=== PATIENT | male | born 1950 | race Caucasian/White ===

== ENCOUNTER 2024-02-04 15:08 | Emergency (ER) | payer MEDICARE, OTHER, SELFPAY ==
[2024-02-04] VITALS (58 sets, daily range): BP systolic 66–161; BP diastolic 43–117; PULSE 92–165; TEMP 36.4; O2SAT 81–100; BMI 23.6
--- NOTE | 2024-02-04 15:14 | ECG_ITS ---
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
[2024-02-04 15:24] LABS: Glucometer 426 mg/dL (74-106)
[2024-02-04] MEDS: METOPROLOL TARTRATE 5 MG/5 ML VIAL IVP ×4 (15:24→23:06)
[2024-02-04] MEDS: 0.9 % SODIUM CHLORIDE 1,000 ML 1000 ML IV ×2 (15:24→17:19)
[2024-02-04 15:58] LABS: Bilirubin Urine NEGATIVE (NEGATIVE); Blood Urine TRACE-I (NEGATIVE); Clarity Urine CLEAR (CLEAR); Color Urine LT. YELLOW (YELLOW); Glucose Urine UA >=1000 mg/dL (NEGATIVE); Ketones Urine NEGATIVE (NEGATIVE); Leukocyte Esterase Urine NEGATIVE (NEGATIVE); Nitrite Urine NEGATIVE (NEGATIVE); Protein Urine NEGATIVE (NEG/TRACE)
[2024-02-04 15:58] LABS: Basophils Percent Auto 0.3 % (0.2-2.0); Eosinophils Percent Auto 0.2 % (0.9-7.0); Hematocrit 26.5 % (42.0-54.0); Hemoglobin 8.3 g/dL (14.0-18.0); Immature Granulocytes Abs Auto 0.03 10^3/uL (0.00-0.03); Immature Granulocytes Pct Auto 0.3 % (0.0-0.5); Lymphocytes Absolute Auto 0.8 10^3/uL (1.2-3.8); Lymphocytes Percent Auto 8.5 % (20.5-60.0); Mean Corpuscular HGB Conc 31.3 g/dL (29.9-35.2); Mean Corpuscular Hemoglobin 27.9 pg (25.9-34.0); Mean Corpuscular Volume 88.9 fL (80.0-94.0); Mean Platelet Volume 12.5 fL (9.5-13.5); Monocytes Absolute Auto 0.6 10^3/uL (0.3-0.8); Monocytes Percent Auto 6.2 % (1.7-12.0); Neutrophils Absolute Auto 8.2 10^3/uL (1.4-6.5); Neutrophils Percent Auto 84.5 % (43.0-75.0); Platelet Count 176 10^3/uL (150-450); Red Blood Count 2.98 10^6/uL (4.70-6.10); White Blood Count 9.7 10^3/uL (4.0-11.0)
[2024-02-04 16:03] LABS: Ethanol <3 mg/dL; Magnesium 1.9 mg/dL (1.8-2.4)
[2024-02-04 16:05] LABS: Urine Microscopic Indicated YES
[2024-02-04 16:13] LABS: Amphetamine Screen Urine NEGATIVE (NEGATIVE); Barbiturates Screen Urine NEGATIVE (NEGATIVE); Benzodiazepines Screen Urine NEGATIVE (NEGATIVE); Buprenorphine Screen Urine NEGATIVE (NEGATIVE); Cannabinoid Screen Urine NEGATIVE (NEGATIVE); Cocaine Screen Urine NEGATIVE (NEGATIVE); Methadone Screen Urine NEGATIVE (NEGATIVE); Methamphetamines Screen Urine NEGATIVE (NEGATIVE); Opiate Screen Urine NEGATIVE (NEGATIVE); Oxycodone Screen Urine NEGATIVE (NEGATIVE); Phencyclidine Screen Urine NEGATIVE (NEGATIVE); Tricyclic Antidepressant Urine NEGATIVE (NEGATIVE)
[2024-02-04 16:13] LABS: Alanine Aminotransferase 40 U/L (16-63); Albumin Globulin Ratio 0.9; Albumin Level 3.6 g/dL (3.4-5.0); Alkaline Phosphatase 218 U/L (46-116); Anion Gap 22.1; Aspartate Amino Transferase 38 U/L (15-37); BUN Creatinine Ratio 35.7; Bilirubin Total 1.3 mg/dL (0.2-1.0); Calcium 10.2 mg/dL (8.5-10.1); Carbon Dioxide 20.5 mmol/L (21.0-32.0); Chloride 104 mmol/L (98-107); Creatine Kinase 118 U/L (39-308); Estimated GFR (African America 32 (>=60); Estimated GFR (Non-African Ame 26 (>=60); Glucose 436 mg/dL (74-106); Potassium 4.6 mmol/L (3.5-5.1); Sodium 142 mmol/L (136-145); Total Protein 7.6 g/dL (6.4-8.2)
--- NOTE | 2024-02-04 16:13 | XR_ITS ---
The [address] [address] Patient Name: ALLISON CONROY MRN: [id number] date: 1950 Sex: M Assigned Patient Location: ER Current Patient Location: ED.MAIN Accession/Order Number: [id number] Exam Date: 02/04/2024 15:55 Report Date: 02/04/2024 16:50 At the request of: SANAZ RODRIGUEZ Procedure: XR chest 1V EXAM: XR chest 1V HISTORY: ams COMPARISON: None. TECHNIQUE: Chest X-ray AP, 1 view FINDINGS: Support devices: None. Lungs/pleura: No consolidation, effusion, or pneumothorax. Heart and mediastinum: Normal contours. Bones: No acute abnormality identified. XR/XR chest 1V Impression: No radiographic evidence of acute cardiopulmonary process. Electronically authenticated by: ISABEL OZUNA Date: 02/04/2024 16:50
--- NOTE | 2024-02-04 16:13 | CT_ITS ---
[address] [address] Patient Name: ALLISON CONROY MRN: [id number] date: 1950 Sex: M Assigned Patient Location: ER Current Patient Location: [facility] Accession/Order Number: [id number] Exam Date: 02/04/2024 15:55 Report Date: 02/04/2024 16:30 At the request of: SANAZ RODRIGUEZ Procedure: CT cervical spine wo con EXAM: CT head/brain wo con, CT cervical spine wo con CLINICAL INDICATION: ams COMPARISON: None TECHNIQUE: Axial CT images of the brain and cervical spine were obtained without contrast. Coronal and sagittal reformats were obtained. Dose reduction techniques were achieved by using automated exposure control and/or adjustment of mA and/or kV according to patient size and/or use of iterative reconstruction technique. FINDINGS: No intracranial hemorrhage, extra-axial fluid collection, hydrocephalus, midline shift, or acute large vessel territory infarction. No other mass effect. Mild symmetric global volume loss without lobar predominance. Slight commensurate prominence of the ventricular system. Basal cisterns are patent. No calvarial fracture. Normal soft tissues. Nonspecific bilateral proptosis. Mild scattered paranasal sinus mucosal thickening. Mastoid air cells are well-aerated. Osseous Mineralization: Diffuse osseous demineralization limits evaluation of fine osseous detail. Trauma: No definite fracture, traumatic malalignment, facet dislocation, or discrete epidural hemorrhage. Alignment: Normal craniocervical and cervicothoracic junctions. Vertebral Body Heights: Maintained. Spondylotic Changes: Multilevel spondylotic changes include varying degrees of intervertebral disc height loss, osteophytic ridging, endplate sclerosis, and facet/uncovertebral joint hypertrophy. Partially calcified degenerative panus formation along the dorsal tip of the dens. Soft Tissues: No acute abnormalities. Scattered basilar calcifications. Other: Clear visualized lung apices. Airway is patent. CT/CT cervical spine wo con IMPRESSION: 1. No acute intracranial process. 2. Given the constraint of osseous debris embolization, there is no definite ventricles without fracture or traumatic malalignment. 3. Multilevel spondylotic changes. Electronically authenticated by: SAVANNA LEWIS Date: 02/04/2024 16:30
--- NOTE | 2024-02-04 16:13 | CT_ITS ---
[address] [address] Patient Name: ALLISON CONROY MRN: [id number] date: 1950 Sex: M Assigned Patient Location: ER Current Patient Location: [facility] Accession/Order Number: [id number] Exam Date: 02/04/2024 15:55 Report Date: 02/04/2024 16:30 At the request of: SANAZ RODRIGUEZ Procedure: CT head/brain wo con EXAM: CT head/brain wo con, CT cervical spine wo con CLINICAL INDICATION: ams COMPARISON: None TECHNIQUE: Axial CT images of the brain and cervical spine were obtained without contrast. Coronal and sagittal reformats were obtained. Dose reduction techniques were achieved by using automated exposure control and/or adjustment of mA and/or kV according to patient size and/or use of iterative reconstruction technique. FINDINGS: No intracranial hemorrhage, extra-axial fluid collection, hydrocephalus, midline shift, or acute large vessel territory infarction. No other mass effect. Mild symmetric global volume loss without lobar predominance. Slight commensurate prominence of the ventricular system. Basal cisterns are patent. No calvarial fracture. Normal soft tissues. Nonspecific bilateral proptosis. Mild scattered paranasal sinus mucosal thickening. Mastoid air cells are well-aerated. Osseous Mineralization: Diffuse osseous demineralization limits evaluation of fine osseous detail. Trauma: No definite fracture, traumatic malalignment, facet dislocation, or discrete epidural hemorrhage. Alignment: Normal craniocervical and cervicothoracic junctions. Vertebral Body Heights: Maintained. Spondylotic Changes: Multilevel spondylotic changes include varying degrees of intervertebral disc height loss, osteophytic ridging, endplate sclerosis, and facet/uncovertebral joint hypertrophy. Partially calcified degenerative panus formation along the dorsal tip of the dens. Soft Tissues: No acute abnormalities. Scattered basilar calcifications. Other: Clear visualized lung apices. Airway is patent. CT/CT head/brain wo con IMPRESSION: 1. No acute intracranial process. 2. Given the constraint of osseous debris embolization, there is no definite ventricles without fracture or traumatic malalignment. 3. Multilevel spondylotic changes. Electronically authenticated by: SAVANNA LEWIS Date: 02/04/2024 16:30
[2024-02-04 16:17] LABS: Ammonia 98 umol/L (11-32)
[2024-02-04 16:17] LABS: Bacteria Urine NONE SEEN #/HPF (NONE SEEN); Cast Seen? NONE SEEN #/LPF (NONE SEEN); Crystals Seen? None Seen #/HPF (None Seen); Mucus Urine NONE SEEN (NONE SEEN); Squamous Epithelial Cell Urine NONE SEEN #/LPF (NONE/RARE); WBC Urine NONE SEEN #/HPF (NONE SEEN)
[2024-02-04 16:17] LABS: Troponin I High Sensitivity 361.1 pg/mL (4.0-76.1)
[2024-02-04 16:24] LABS: Lactate/Lactic Acid 6.3 mmol/L (0.4-2.0)
[2024-02-04 16:53] LABS: ABG PCO2 29.8 mmHg (35.0-45.0); Allen Test POSITIVE (POSITIVE); HCO3 ABG 20.9 mmol/L (22.0-26.0); Oxygen Saturation ABG 94.5 %; PO2 ABG 79.4 mmHg (80.0-100.0); pH ABG 7.455 (7.350-7.450)
[2024-02-04 16:54] LABS: O2 Mode ROOM AIR; Puncture Site L RAD
[2024-02-04] MEDS: PIPERACILLIN SODIUM/TAZOBACTAM 4.5 GM in 0.9 % SODIUM CHLORIDE 50 ML IV (17:19)
[2024-02-04 17:38] LABS: Lactate/Lactic Acid 3.5 mmol/L (0.4-2.0); Troponin I High Sensitivity 2617.9 pg/mL (4.0-76.1)
--- NOTE | 2024-02-04 17:42 | ED_ITS ---
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 The patient presenting to us he is just moaning he is not providing history or following any commands Related Data Allergies Allergy/AdvReac Type Severity Reaction Status Date / Time balsam ana maria [From Optase] Allergy Severe Verified 02/04/24 15:23 castor oil [From Optase] Allergy Severe Verified 02/04/24 15:23 fish oil Allergy Severe Verified 02/04/24 15:23 mushroom Allergy Severe Verified 02/04/24 15:23 trypsin [From Optase] Allergy Severe Verified 02/04/24 15:23 Review of Systems ROS Narrative Review of systems is limited due to the patient's clinical presentation Exam Narrative Exam Narrative: Nurses notes and vital signs reviewed and patient is not hypoxic. General: No acute and dehydrated the patient is covered with physical Skin: Warm, dry, no pallor noted. No rash. Head: Normocephalic, atraumatic. Neck: Supple, non-tender. Eye: Pupils are equal, round and EOMI. No scleral icterus. Ears, Nose, Mouth, and Throat: Oral mucosa is dry Cardiovascular: Irregular rate and Rhythm without murmur, gallop or rub. Respiratory: No accessory muscle use or respiratory distress. Lungs are clear to auscultation, no wheezing, rales or rhonchi Chest Wall: no tenderness Back: No midline thoracic or lumbar vertebral tenderness. No CVA tenderness Musculoskeletal: normal ROM, no calf or popliteal tenderness, no lower extremity edema/swelling GI: Abdomen is soft, non-distended. Normal bowel sounds. No masses appreciated. No tenderness to palpation. No rebound, guarding, or rigidity noted. rectal exam shows black stool and large hemorrhoid at 6 oclock Neurological: The patient is awake able to move his upper and lower extremities sporadically but there is no motivation the cranial nerves looks intact but the patient is not following command and not cooperative Constitutional Vital Signs, click to edit/add: Last Vital Signs Pulse 109 H 02/04/24 17:45 Resp 14 02/04/24 17:45 BP 114/73 02/04/24 18:01 Pulse Ox 96 02/04/24 17:45 O2 Del Method Room Air 02/04/24 15:28 Course Vital Signs Vital signs: Vital Signs Pulse Rate 157 H 02/04/24 15:12 Respiratory Rate 20 02/04/24 15:12 Blood Pressure 161/117 H 02/04/24 15:12 Pulse Oximetry 96 02/04/24 15:12 Oxygen Delivery Method Room Air 02/04/24 15:12 Pulse Rate 109 H 02/04/24 17:45 Respiratory Rate 14 02/04/24 17:45 Blood Pressure 114/73 02/04/24 18:01 Pulse Oximetry 96 02/04/24 17:45 Oxygen Delivery Method Room Air 02/04/24 15:28 MDM - Altered Mental Status MDM Narrative Medical decision making narrative: Upon presentation the patient was found to be in A-fib with a heart rate of 156, Initially the patient was moaning after placing the catheter he became silent and the catheter drained almost a liter at least of urine. The patient CBC showed no acute significant pathology with the chemistry showing elevated creatinine as well as BUN elevation that could be significant for possible upper GI bleed as well at that the BUN is 87 Creatinine is 2.4. The patient troponin initially was 361-----patient provided with beta-vonda IV 5 mg once The patient also was covered with antibiotic after obtaining a blood culture, no source of infection detected Lactic acid 6.5 after 1 L fluid the patient lactic acid 3.5 Patient still calm looking but not providing history. CT head as well as CT cervical spine showed no acute pathology Chest x-ray showed no acute pathology as well Patient history was obtained from the friend who provide us with a history that he had been discharged just from [facility] [place] almost on Saturday after he was getting evaluated for A-fib as well as GI bleed and diabetes Upon presentation the patient blood sugar above 400 Repeated EKG showing atrial fibrillation at a heart rate of [address] depression in V5 and V6 and no other significant changes The patient have multiple reasons to have altered mental status due to metabolic reasons specially that he is moving his upper and lower extremities sporadically and does not show any cranial nerve pathology, the patient last known well was yesterday when his friend was talking to him on the phone and that this past almost 23 hours since then The patient ammonia level also was 98 and his BUN is 87 The patient did say yes when calling his nname after he was hydrated But he did not answer the phone question and he also one called his name he said yes but he did not provide any more history Patient was accepted by Dr. Wright After Is causing the case with him and with now awaiting to speak with the hospitalist in [place] Patient's care will be transferred to Dr. Jane awaiting transfer care Lab Data Labs: Lab Results 02/04/24 02/04/24 02/04/24 Range/Units 15:10 15:13 15:40 WBC 9.7 (4.0-11.0) 10^3/uL RBC 2.98 L (4.70-6.10) 10^6/uL Hgb 8.3 L (14.0-18.0) g/dL Hct 26.5 L (42.0-54.0) % MCV 88.9 (80.0-94.0) fL MCH 27.9 (25.9-34.0) pg MCHC 31.3 (29.9-35.2) g/dL RDW 16.0 H (11.0-15.0) % Plt Count 176 (150-450) 10^3/uL MPV 12.5 (9.5-13.5) fL Neut % (Auto) 84.5 H (43.0-75.0) % Lymph % (Auto) 8.5 L (20.5-60.0) % [place] % (Auto) 6.2 (1.7-12.0) % Eos % (Auto) 0.2 L (0.9-7.0) % Baso % (Auto) 0.3 (0.2-2.0) % Neut # (Auto) 8.2 H (1.4-6.5) 10^3/uL Lymph # (Auto) 0.8 L (1.2-3.8) 10^3/uL [place] # (Auto) 0.6 (0.3-0.8) 10^3/uL Eos # (Auto) 0.0 (0.0-0.7) 10^3/uL Baso # (Auto) 0.0 (0.0-0.1) 10^3/uL Abs Immat Gran (auto) 0.03 (0.00-0.03) 10^3/uL Imm/Tot Granulo (auto) 0.3 (0.0-0.5) % Puncture Site ABG pH (7.350-7.450) ABG pCO2 (35.0-45.0) mmHg ABG pO2 (80.0-100.0) mmHg ABG HCO3 (22.0-26.0) mmol/L ABG O2 Saturation % ABG Base Excess (-2.0-2.0) mmol/L Stephon Test (POSITIVE) Sodium 142 (136-145) mmol/L Potassium 4.6 (3.5-5.1) mmol/L Chloride 104 (98-107) mmol/L Carbon Dioxide 20.5 L (21.0-32.0) mmol/L Anion Gap 22.1 BUN 87.0 H* (7.0-18.0) mg/dL Creatinine 2.44 H (0.70-1.30) mg/dL Est GFR ( Amer) 32 L (>=60) Est GFR (Non-Af Amer) 26 L (>=60) BUN/Creatinine Ratio 35.7 Glucose 436 H (74-106) mg/dL Lactate 6.3 H* (0.4-2.0) mmol/L Calcium 10.2 H (8.5-10.1) mg/dL Magnesium 1.9 (1.8-2.4) mg/dL Total Bilirubin 1.3 H (0.2-1.0) mg/dL AST 38 H (15-37) U/L ALT 40 (16-63) U/L Alkaline Phosphatase 218 H (46-116) U/L Ammonia (11-32) umol/L Total Creatine Kinase 118 (39-308) U/L Troponin I High Sens 361.1 H* (4.0-76.1) pg/mL Total Protein 7.6 (6.4-8.2) g/dL Albumin 3.6 (3.4-5.0) g/dL Globulin 4.0 g/dL Albumin/Globulin Ratio 0.9 Urine Color Lt. yellow (YELLOW) Urine Clarity Clear (CLEAR) Urine pH 6.0 (5.0-9.0) Ur Specific [place] 1.010 (1.005-1.025) Urine Protein Negative (NEG/TRACE) mg/dL Urine Glucose (UA) >=1000 A (NEGATIVE) mg/dL Urine Ketones Negative (NEGATIVE) mg/dL Urine Occult Blood Trace-i (NEGATIVE) Urine Nitrite Negative (NEGATIVE) Urine Bilirubin Negative (NEGATIVE) Urine Urobilinogen 1.0 (0.2-1.0) EU/dL Ur Leukocyte Esterase Negative (NEGATIVE) Urine RBC 2-5 A (0-2) #/HPF Urine WBC None seen (NONE SEEN) #/HPF Ur Squamous Epith Cells None seen (NONE/RARE) #/LPF Urine Crystals None seen (None Seen) #/HPF Urine Bacteria None seen (NONE SEEN) #/HPF Urine Casts None seen (NONE SEEN) #/LPF Urine Mucus None seen (NONE SEEN) Stool Occult Blood Urine Opiates Screen Negative (NEGATIVE) Ur Buprenorphine Scrn Negative (NEGATIVE) Ur Oxycodone Screen Negative (NEGATIVE) Urine Methadone Screen Negative (NEGATIVE) Ur Barbiturates Screen Negative (NEGATIVE) U Tricyclic Antidepress Negative (NEGATIVE) Ur Phencyclidine Scrn Negative (NEGATIVE) Ur Amphetamines Screen Negative (NEGATIVE) U Methamphetamines Scrn Negative (NEGATIVE) U Benzodiazepines Scrn Negative (NEGATIVE) Urine Cocaine Screen Negative (NEGATIVE) U Cannabinoids Screen Negative (NEGATIVE) Ethanol Quant <3 mg/dL POC Glucose 426 H (74-106) mg/dL 02/04/24 02/04/24 02/04/24 Range/Units 15:44 16:45 17:05 WBC (4.0-11.0) 10^3/uL RBC (4.70-6.10) 10^6/uL Hgb (14.0-18.0) g/dL Hct (42.0-54.0) % MCV (80.0-94.0) fL MCH (25.9-34.0) pg MCHC (29.9-35.2) g/dL RDW (11.0-15.0) % Plt Count (150-450) 10^3/uL MPV (9.5-13.5) fL Neut % (Auto) (43.0-75.0) % Lymph % (Auto) (20.5-60.0) % [place] % (Auto) (1.7-12.0) % Eos % (Auto) (0.9-7.0) % Baso % (Auto) (0.2-2.0) % Neut # (Auto) (1.4-6.5) 10^3/uL Lymph # (Auto) (1.2-3.8) 10^3/uL [place] # (Auto) (0.3-0.8) 10^3/uL Eos # (Auto) (0.0-0.7) 10^3/uL Baso # (Auto) (0.0-0.1) 10^3/uL Abs Immat Gran (auto) (0.00-0.03) 10^3/uL Imm/Tot Granulo (auto) (0.0-0.5) % Puncture Site L rad ABG pH 7.455 H (7.350-7.450) ABG pCO2 29.8 L (35.0-45.0) mmHg ABG pO2 79.4 L (80.0-100.0) mmHg ABG HCO3 20.9 L (22.0-26.0) mmol/L ABG O2 Saturation 94.5 % ABG Base Excess -3.0 L (-2.0-2.0) mmol/L Stephon Test Positive (POSITIVE) Sodium (136-145) mmol/L Potassium (3.5-5.1) mmol/L Chloride (98-107) mmol/L Carbon Dioxide (21.0-32.0) mmol/L Anion Gap BUN (7.0-18.0) mg/dL Creatinine (0.70-1.30) mg/dL Est GFR ( Amer) (>=60) Est GFR (Non-Af Amer) (>=60) BUN/Creatinine Ratio Glucose (74-106) mg/dL Lactate 3.5 H* (0.4-2.0) mmol/L Calcium (8.5-10.1) mg/dL Magnesium (1.8-2.4) mg/dL Total Bilirubin (0.2-1.0) mg/dL AST (15-37) U/L ALT (16-63) U/L Alkaline Phosphatase (46-116) U/L Ammonia 98 H* (11-32) umol/L Total Creatine Kinase (39-308) U/L Troponin I High Sens 2617.9 H* (4.0-76.1) pg/mL Total Protein (6.4-8.2) g/dL Albumin (3.4-5.0) g/dL Globulin g/dL Albumin/Globulin Ratio Urine Color (YELLOW) Urine Clarity (CLEAR) Urine pH (5.0-9.0) Ur Specific [place] (1.005-1.025) Urine Protein (NEG/TRACE) mg/dL Urine Glucose (UA) (NEGATIVE) mg/dL Urine Ketones (NEGATIVE) mg/dL Urine Occult Blood (NEGATIVE) Urine Nitrite (NEGATIVE) Urine Bilirubin (NEGATIVE) Urine Urobilinogen (0.2-1.0) EU/dL Ur Leukocyte Esterase (NEGATIVE) Urine RBC (0-2) #/HPF Urine WBC (NONE SEEN) #/HPF Ur Squamous Epith Cells (NONE/RARE) #/LPF Urine Crystals (None Seen) #/HPF Urine Bacteria (NONE SEEN) #/HPF Urine Casts (NONE SEEN) #/LPF Urine Mucus (NONE SEEN) Stool Occult Blood Urine Opiates Screen (NEGATIVE) Ur Buprenorphine Scrn (NEGATIVE) Ur Oxycodone Screen (NEGATIVE) Urine Methadone Screen (NEGATIVE) Ur Barbiturates Screen (NEGATIVE) U Tricyclic Antidepress (NEGATIVE) Ur Phencyclidine Scrn (NEGATIVE) Ur Amphetamines Screen (NEGATIVE) U Methamphetamines Scrn (NEGATIVE) U Benzodiazepines Scrn (NEGATIVE) Urine Cocaine Screen (NEGATIVE) U Cannabinoids Screen (NEGATIVE) Ethanol Quant mg/dL POC Glucose (74-106) mg/dL 02/04/24 Range/Units 18:00 WBC (4.0-11.0) 10^3/uL RBC (4.70-6.10) 10^6/uL Hgb (14.0-18.0) g/dL Hct (42.0-54.0) % MCV (80.0-94.0) fL MCH (25.9-34.0) pg MCHC (29.9-35.2) g/dL RDW (11.0-15.0) % Plt Count (150-450) 10^3/uL MPV (9.5-13.5) fL Neut % (Auto) (43.0-75.0) % Lymph % (Auto) (20.5-60.0) % [place] % (Auto) (1.7-12.0) % Eos % (Auto) (0.9-7.0) % Baso % (Auto) (0.2-2.0) % Neut # (Auto) (1.4-6.5) 10^3/uL Lymph # (Auto) (1.2-3.8) 10^3/uL [place] # (Auto) (0.3-0.8) 10^3/uL Eos # (Auto) (0.0-0.7) 10^3/uL Baso # (Auto) (0.0-0.1) 10^3/uL Abs Immat Gran (auto) (0.00-0.03) 10^3/uL Imm/Tot Granulo (auto) (0.0-0.5) % Puncture Site ABG pH (7.350-7.450) ABG pCO2 (35.0-45.0) mmHg ABG pO2 (80.0-100.0) mmHg ABG HCO3 (22.0-26.0) mmol/L ABG O2 Saturation % ABG Base Excess (-2.0-2.0) mmol/L Stephon Test (POSITIVE) Sodium (136-145) mmol/L Potassium (3.5-5.1) mmol/L Chloride (98-107) mmol/L Carbon Dioxide (21.0-32.0) mmol/L Anion Gap BUN (7.0-18.0) mg/dL Creatinine (0.70-1.30) mg/dL Est GFR ( Amer) (>=60) Est GFR (Non-Af Amer) (>=60) BUN/Creatinine Ratio Glucose (74-106) mg/dL Lactate (0.4-2.0) mmol/L Calcium (8.5-10.1) mg/dL Magnesium (1.8-2.4) mg/dL Total Bilirubin (0.2-1.0) mg/dL AST (15-37) U/L ALT (16-63) U/L Alkaline Phosphatase (46-116) U/L Ammonia (11-32) umol/L Total Creatine Kinase (39-308) U/L Troponin I High Sens (4.0-76.1) pg/mL Total Protein (6.4-8.2) g/dL Albumin (3.4-5.0) g/dL Globulin g/dL Albumin/Globulin Ratio Urine Color (YELLOW) Urine Clarity (CLEAR) Urine pH (5.0-9.0) Ur Specific [place] (1.005-1.025) Urine Protein (NEG/TRACE) mg/dL Urine Glucose (UA) (NEGATIVE) mg/dL Urine Ketones (NEGATIVE) mg/dL Urine Occult Blood (NEGATIVE) Urine Nitrite (NEGATIVE) Urine Bilirubin (NEGATIVE) Urine Urobilinogen (0.2-1.0) EU/dL Ur Leukocyte Esterase (NEGATIVE) Urine RBC (0-2) #/HPF Urine WBC (NONE SEEN) #/HPF Ur Squamous Epith Cells (NONE/RARE) #/LPF Urine Crystals (None Seen) #/HPF Urine Bacteria (NONE SEEN) #/HPF Urine Casts (NONE SEEN) #/LPF Urine Mucus (NONE SEEN) Stool Occult Blood Positive A Urine Opiates Screen (NEGATIVE) Ur Buprenorphine Scrn (NEGATIVE) Ur Oxycodone Screen (NEGATIVE) Urine Methadone Screen (NEGATIVE) Ur Barbiturates Screen (NEGATIVE) U Tricyclic Antidepress (NEGATIVE) Ur Phencyclidine Scrn (NEGATIVE) Ur Amphetamines Screen (NEGATIVE) U Methamphetamines Scrn (NEGATIVE) U Benzodiazepines Scrn (NEGATIVE) Urine Cocaine Screen (NEGATIVE) U Cannabinoids Screen (NEGATIVE) Ethanol Quant mg/dL POC Glucose (74-106) mg/dL Critical Care Time Critical Care Time Critical Care Time: Yes Total Critical Care Time: 60 Attestation: multiple bedside evaluation for improvement Discharge Plan Discharge Patient Disposition: Still a Patient
--- NOTE | 2024-02-04 17:47 | ECG_ITS ---
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
[2024-02-04 18:31] LABS: Occult Blood Positive
--- NOTE | 2024-02-04 20:02 | ED_ITS ---
HPI - Altered Mental Status General Chief Complaint: Altered Mental Status Stated Complaint: FALL Time Seen by Provider: 02/04/24 15:14 Source: medical record Source comment: Dayshift physician, Dr Plascencia Mode of arrival: ambulance Limitations: altered mental status History of Present Illness HPI narrative: This 73-year-old male was signed out to me at shift change pending transfer arrangements. He was brought to the emergency department by EMS from home after he was found poorly responsive at his home earlier today by a colleague. 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 He was also recently admitted to [facility] for atrial fibrillation, uncontrolled diabetes and a gastrointestinal bleed. He was found to be in atrial fibrillation with RVR and was given IV metoprolol and IV fluids. His initial troponin was 300 and also troponin was over 2000. CT of the brain was negative for acute findings. He does have an elevated BUN today of 86. Ammonia is elevated at 98. Patient was seen and evaluated. He is awake but does not follow commands. He does answer questions with a yes and then now. His abdomen is soft. His lungs are clear. He was noted to have a fluctuating pulse with atrial fibrillation on the monitor. IV fluids and an additional 5 mg of IV Lopressor was ordered at this time. Dr. Plascencia spoke to the associate justice and we are waiting to hear from the hospitalist for further acceptance and transfer arrangements at this time. Case was discussed with ELVA Clarke and he is accepted to the service of Dr Singh. She requests that he be given lactulose for the elevated ammonia and this was ordered. He was given the lactulose but spit it out. He was given 1 unit of IV PBRCs for the anemia with the elevated troponin and history of GI bleed. Critical care time 45 minutes Related Data Allergies Allergy/AdvReac Type Severity Reaction Status Date / Time balsam ana maria [From Optase] Allergy Severe Verified 02/04/24 15:23 castor oil [From Optase] Allergy Severe Verified 02/04/24 15:23 fish oil Allergy Severe Verified 02/04/24 15:23 mushroom Allergy Severe Verified 02/04/24 15:23 trypsin [From Optase] Allergy Severe Verified 02/04/24 15:23 Exam Constitutional Vital Signs, click to edit/add: Last Vital Signs Temp 97.6 F 02/04/24 19:42 Pulse 96 H 02/05/24 00:15 Resp 19 02/05/24 00:15 BP 140/84 02/05/24 00:00 Pulse Ox 95 02/05/24 00:15 O2 Del Method Room Air 02/04/24 15:28 Course Vital Signs Vital signs: Vital Signs Pulse Rate 157 H 02/04/24 15:12 Respiratory Rate 20 02/04/24 15:12 Blood Pressure 161/117 H 02/04/24 15:12 Pulse Oximetry 96 02/04/24 15:12 Oxygen Delivery Method Room Air 02/04/24 15:12 Temperature 97.6 F 02/04/24 19:42 Pulse Rate 96 H 02/05/24 00:15 Respiratory Rate 19 02/05/24 00:15 Blood Pressure 140/84 02/05/24 00:00 Pulse Oximetry 95 02/05/24 00:15 Oxygen Delivery Method Room Air 02/04/24 15:28 MDM - Altered Mental Status Lab Data Labs: Lab Results 02/04/24 02/04/24 02/04/24 Range/Units 15:10 15:13 15:40 WBC 9.7 (4.0-11.0) 10^3/uL RBC 2.98 L (4.70-6.10) 10^6/uL Hgb 8.3 L (14.0-18.0) g/dL Hct 26.5 L (42.0-54.0) % MCV 88.9 (80.0-94.0) fL MCH 27.9 (25.9-34.0) pg MCHC 31.3 (29.9-35.2) g/dL RDW 16.0 H (11.0-15.0) % Plt Count 176 (150-450) 10^3/uL MPV 12.5 (9.5-13.5) fL Neut % (Auto) 84.5 H (43.0-75.0) % Lymph % (Auto) 8.5 L (20.5-60.0) % [place] % (Auto) 6.2 (1.7-12.0) % Eos % (Auto) 0.2 L (0.9-7.0) % Baso % (Auto) 0.3 (0.2-2.0) % Neut # (Auto) 8.2 H (1.4-6.5) 10^3/uL Lymph # (Auto) 0.8 L (1.2-3.8) 10^3/uL [place] # (Auto) 0.6 (0.3-0.8) 10^3/uL Eos # (Auto) 0.0 (0.0-0.7) 10^3/uL Baso # (Auto) 0.0 (0.0-0.1) 10^3/uL Abs Immat Gran (auto) 0.03 (0.00-0.03) 10^3/uL Imm/Tot Granulo (auto) 0.3 (0.0-0.5) % Puncture Site ABG pH (7.350-7.450) ABG pCO2 (35.0-45.0) mmHg ABG pO2 (80.0-100.0) mmHg ABG HCO3 (22.0-26.0) mmol/L ABG O2 Saturation % ABG Base Excess (-2.0-2.0) mmol/L Stephon Test (POSITIVE) Sodium 142 (136-145) mmol/L Potassium 4.6 (3.5-5.1) mmol/L Chloride 104 (98-107) mmol/L Carbon Dioxide 20.5 L (21.0-32.0) mmol/L Anion Gap 22.1 BUN 87.0 H* (7.0-18.0) mg/dL Creatinine 2.44 H (0.70-1.30) mg/dL Est GFR ( Amer) 32 L (>=60) Est GFR (Non-Af Amer) 26 L (>=60) BUN/Creatinine Ratio 35.7 Glucose 436 H (74-106) mg/dL Lactate 6.3 H* (0.4-2.0) mmol/L Calcium 10.2 H (8.5-10.1) mg/dL Magnesium 1.9 (1.8-2.4) mg/dL Total Bilirubin 1.3 H (0.2-1.0) mg/dL AST 38 H (15-37) U/L ALT 40 (16-63) U/L Alkaline Phosphatase 218 H (46-116) U/L Ammonia (11-32) umol/L Total Creatine Kinase 118 (39-308) U/L Troponin I High Sens 361.1 H* (4.0-76.1) pg/mL Total Protein 7.6 (6.4-8.2) g/dL Albumin 3.6 (3.4-5.0) g/dL Globulin 4.0 g/dL Albumin/Globulin Ratio 0.9 Urine Color Lt. yellow (YELLOW) Urine Clarity Clear (CLEAR) Urine pH 6.0 (5.0-9.0) Ur Specific [place] 1.010 (1.005-1.025) Urine Protein Negative (NEG/TRACE) mg/dL Urine Glucose (UA) >=1000 A (NEGATIVE) mg/dL Urine Ketones Negative (NEGATIVE) mg/dL Urine Occult Blood Trace-i (NEGATIVE) Urine Nitrite Negative (NEGATIVE) Urine Bilirubin Negative (NEGATIVE) Urine Urobilinogen 1.0 (0.2-1.0) EU/dL Ur Leukocyte Esterase Negative (NEGATIVE) Urine RBC 2-5 A (0-2) #/HPF Urine WBC None seen (NONE SEEN) #/HPF Ur Squamous Epith Cells None seen (NONE/RARE) #/LPF Urine Crystals None seen (None Seen) #/HPF Urine Bacteria None seen (NONE SEEN) #/HPF Urine Casts None seen (NONE SEEN) #/LPF Urine Mucus None seen (NONE SEEN) Stool Occult Blood Urine Opiates Screen Negative (NEGATIVE) Ur Buprenorphine Scrn Negative (NEGATIVE) Ur Oxycodone Screen Negative (NEGATIVE) Urine Methadone Screen Negative (NEGATIVE) Ur Barbiturates Screen Negative (NEGATIVE) U Tricyclic Antidepress Negative (NEGATIVE) Ur Phencyclidine Scrn Negative (NEGATIVE) Ur Amphetamines Screen Negative (NEGATIVE) U Methamphetamines Scrn Negative (NEGATIVE) U Benzodiazepines Scrn Negative (NEGATIVE) Urine Cocaine Screen Negative (NEGATIVE) U Cannabinoids Screen Negative (NEGATIVE) Ethanol Quant <3 mg/dL POC Glucose 426 H (74-106) mg/dL Blood Type Antibody Screen Crossmatch See Detail 02/04/24 02/04/24 02/04/24 Range/Units 15:44 16:45 17:05 WBC (4.0-11.0) 10^3/uL RBC (4.70-6.10) 10^6/uL Hgb (14.0-18.0) g/dL Hct (42.0-54.0) % MCV (80.0-94.0) fL MCH (25.9-34.0) pg MCHC (29.9-35.2) g/dL RDW (11.0-15.0) % Plt Count (150-450) 10^3/uL MPV (9.5-13.5) fL Neut % (Auto) (43.0-75.0) % Lymph % (Auto) (20.5-60.0) % [place] % (Auto) (1.7-12.0) % Eos % (Auto) (0.9-7.0) % Baso % (Auto) (0.2-2.0) % Neut # (Auto) (1.4-6.5) 10^3/uL Lymph # (Auto) (1.2-3.8) 10^3/uL [place] # (Auto) (0.3-0.8) 10^3/uL Eos # (Auto) (0.0-0.7) 10^3/uL Baso # (Auto) (0.0-0.1) 10^3/uL Abs Immat Gran (auto) (0.00-0.03) 10^3/uL Imm/Tot Granulo (auto) (0.0-0.5) % Puncture Site L rad ABG pH 7.455 H (7.350-7.450) ABG pCO2 29.8 L (35.0-45.0) mmHg ABG pO2 79.4 L (80.0-100.0) mmHg ABG HCO3 20.9 L (22.0-26.0) mmol/L ABG O2 Saturation 94.5 % ABG Base Excess -3.0 L (-2.0-2.0) mmol/L Stephon Test Positive (POSITIVE) Sodium (136-145) mmol/L Potassium (3.5-5.1) mmol/L Chloride (98-107) mmol/L Carbon Dioxide (21.0-32.0) mmol/L Anion Gap BUN (7.0-18.0) mg/dL Creatinine (0.70-1.30) mg/dL Est GFR ( Amer) (>=60) Est GFR (Non-Af Amer) (>=60) BUN/Creatinine Ratio Glucose (74-106) mg/dL Lactate 3.5 H* (0.4-2.0) mmol/L Calcium (8.5-10.1) mg/dL Magnesium (1.8-2.4) mg/dL Total Bilirubin (0.2-1.0) mg/dL AST (15-37) U/L ALT (16-63) U/L Alkaline Phosphatase (46-116) U/L Ammonia 98 H* (11-32) umol/L Total Creatine Kinase (39-308) U/L Troponin I High Sens 2617.9 H* (4.0-76.1) pg/mL Total Protein (6.4-8.2) g/dL Albumin (3.4-5.0) g/dL Globulin g/dL Albumin/Globulin Ratio Urine Color (YELLOW) Urine Clarity (CLEAR) Urine pH (5.0-9.0) Ur Specific [place] (1.005-1.025) Urine Protein (NEG/TRACE) mg/dL Urine Glucose (UA) (NEGATIVE) mg/dL Urine Ketones (NEGATIVE) mg/dL Urine Occult Blood (NEGATIVE) Urine Nitrite (NEGATIVE) Urine Bilirubin (NEGATIVE) Urine Urobilinogen (0.2-1.0) EU/dL Ur Leukocyte Esterase (NEGATIVE) Urine RBC (0-2) #/HPF Urine WBC (NONE SEEN) #/HPF Ur Squamous Epith Cells (NONE/RARE) #/LPF Urine Crystals (None Seen) #/HPF Urine Bacteria (NONE SEEN) #/HPF Urine Casts (NONE SEEN) #/LPF Urine Mucus (NONE SEEN) Stool Occult Blood Urine Opiates Screen (NEGATIVE) Ur Buprenorphine Scrn (NEGATIVE) Ur Oxycodone Screen (NEGATIVE) Urine Methadone Screen (NEGATIVE) Ur Barbiturates Screen (NEGATIVE) U Tricyclic Antidepress (NEGATIVE) Ur Phencyclidine Scrn (NEGATIVE) Ur Amphetamines Screen (NEGATIVE) U Methamphetamines Scrn (NEGATIVE) U Benzodiazepines Scrn (NEGATIVE) Urine Cocaine Screen (NEGATIVE) U Cannabinoids Screen (NEGATIVE) Ethanol Quant mg/dL POC Glucose (74-106) mg/dL Blood Type Antibody Screen Crossmatch 02/04/24 02/04/24 Range/Units 18:00 20:22 WBC 6.4 (4.0-11.0) 10^3/uL RBC 2.75 L (4.70-6.10) 10^6/uL Hgb 7.9 L (14.0-18.0) g/dL Hct 24.4 L (42.0-54.0) % MCV 88.7 (80.0-94.0) fL MCH 28.7 (25.9-34.0) pg MCHC 32.4 (29.9-35.2) g/dL RDW 15.9 H (11.0-15.0) % Plt Count 108 L (150-450) 10^3/uL MPV 12.8 (9.5-13.5) fL Neut % (Auto) 74.7 (43.0-75.0) % Lymph % (Auto) 15.7 L (20.5-60.0) % [place] % (Auto) 8.3 (1.7-12.0) % Eos % (Auto) 0.5 L (0.9-7.0) % Baso % (Auto) 0.5 (0.2-2.0) % Neut # (Auto) 4.8 (1.4-6.5) 10^3/uL Lymph # (Auto) 1.0 L (1.2-3.8) 10^3/uL [place] # (Auto) 0.5 (0.3-0.8) 10^3/uL Eos # (Auto) 0.0 (0.0-0.7) 10^3/uL Baso # (Auto) 0.0 (0.0-0.1) 10^3/uL Abs Immat Gran (auto) 0.02 (0.00-0.03) 10^3/uL Imm/Tot Granulo (auto) 0.3 (0.0-0.5) % Puncture Site ABG pH (7.350-7.450) ABG pCO2 (35.0-45.0) mmHg ABG pO2 (80.0-100.0) mmHg ABG HCO3 (22.0-26.0) mmol/L ABG O2 Saturation % ABG Base Excess (-2.0-2.0) mmol/L Stephon Test (POSITIVE) Sodium 145 (136-145) mmol/L Potassium 4.3 (3.5-5.1) mmol/L Chloride 110 H (98-107) mmol/L Carbon Dioxide 21.8 (21.0-32.0) mmol/L Anion Gap 17.5 BUN 77.0 H* (7.0-18.0) mg/dL Creatinine 1.97 H (0.70-1.30) mg/dL Est GFR ( Amer) 41 L (>=60) Est GFR (Non-Af Amer) 33 L (>=60) BUN/Creatinine Ratio 39.1 Glucose 357 H (74-106) mg/dL Lactate (0.4-2.0) mmol/L Calcium 9.5 (8.5-10.1) mg/dL Magnesium (1.8-2.4) mg/dL Total Bilirubin 1.2 H (0.2-1.0) mg/dL AST 44 H (15-37) U/L ALT 33 (16-63) U/L Alkaline Phosphatase 186 H (46-116) U/L Ammonia (11-32) umol/L Total Creatine Kinase (39-308) U/L Troponin I High Sens 5254.2 H* (4.0-76.1) pg/mL Total Protein 6.8 (6.4-8.2) g/dL Albumin 3.1 L (3.4-5.0) g/dL Globulin 3.7 g/dL Albumin/Globulin Ratio 0.8 Urine Color (YELLOW) Urine Clarity (CLEAR) Urine pH (5.0-9.0) Ur Specific [place] (1.005-1.025) Urine Protein (NEG/TRACE) mg/dL Urine Glucose (UA) (NEGATIVE) mg/dL Urine Ketones (NEGATIVE) mg/dL Urine Occult Blood (NEGATIVE) Urine Nitrite (NEGATIVE) Urine Bilirubin (NEGATIVE) Urine Urobilinogen (0.2-1.0) EU/dL Ur Leukocyte Esterase (NEGATIVE) Urine RBC (0-2) #/HPF Urine WBC (NONE SEEN) #/HPF Ur Squamous Epith Cells (NONE/RARE) #/LPF Urine Crystals (None Seen) #/HPF Urine Bacteria (NONE SEEN) #/HPF Urine Casts (NONE SEEN) #/LPF Urine Mucus (NONE SEEN) Stool Occult Blood Positive A Urine Opiates Screen (NEGATIVE) Ur Buprenorphine Scrn (NEGATIVE) Ur Oxycodone Screen (NEGATIVE) Urine Methadone Screen (NEGATIVE) Ur Barbiturates Screen (NEGATIVE) U Tricyclic Antidepress (NEGATIVE) Ur Phencyclidine Scrn (NEGATIVE) Ur Amphetamines Screen (NEGATIVE) U Methamphetamines Scrn (NEGATIVE) U Benzodiazepines Scrn (NEGATIVE) Urine Cocaine Screen (NEGATIVE) U Cannabinoids Screen (NEGATIVE) Ethanol Quant mg/dL POC Glucose (74-106) mg/dL Blood Type A Positive Antibody Screen Negative Crossmatch Discharge Plan Discharge Chief Complaint: Altered Mental Status Clinical Impression: Acute kidney injury, Hyperglycemia, Acute retention of urine, Atrial fibrillation with rapid ventricular response GIB (gastrointestinal bleeding) Qualifiers: GI bleed type/associated pathology: melena Qualified Code(s): K92.1 - Melena Altered mental status Qualifiers: Altered mental status type: unspecified Qualified Code(s): R41.82 - Altered mental status, unspecified Patient Disposition: [facility] Time of Disposition Decision: 20:38 Discharge Location: [facility] Condition: Serious
[2024-02-04] MEDS: 0.9 % SODIUM CHLORIDE 1,000 ML 125 ML IV (20:31)
[2024-02-04 20:39] LABS: Basophils Percent Auto 0.5 % (0.2-2.0); Eosinophils Percent Auto 0.5 % (0.9-7.0); Hematocrit 24.4 % (42.0-54.0); Hemoglobin 7.9 g/dL (14.0-18.0); Immature Granulocytes Abs Auto 0.02 10^3/uL (0.00-0.03); Immature Granulocytes Pct Auto 0.3 % (0.0-0.5); Lymphocytes Percent Auto 15.7 % (20.5-60.0); Mean Corpuscular HGB Conc 32.4 g/dL (29.9-35.2); Mean Corpuscular Hemoglobin 28.7 pg (25.9-34.0); Mean Corpuscular Volume 88.7 fL (80.0-94.0); Mean Platelet Volume 12.8 fL (9.5-13.5); Monocytes Absolute Auto 0.5 10^3/uL (0.3-0.8); Monocytes Percent Auto 8.3 % (1.7-12.0); Neutrophils Absolute Auto 4.8 10^3/uL (1.4-6.5); Neutrophils Percent Auto 74.7 % (43.0-75.0); Platelet Count 108 10^3/uL (150-450); Red Blood Count 2.75 10^6/uL (4.70-6.10); Red Cell Distribution Width 15.9 % (11.0-15.0); White Blood Count 6.4 10^3/uL (4.0-11.0)
[2024-02-04 20:51] LABS: Alanine Aminotransferase 33 U/L (16-63); Albumin Globulin Ratio 0.8; Albumin Level 3.1 g/dL (3.4-5.0); Alkaline Phosphatase 186 U/L (46-116); Anion Gap 17.5; Aspartate Amino Transferase 44 U/L (15-37); BUN Creatinine Ratio 39.1; Bilirubin Total 1.2 mg/dL (0.2-1.0); Calcium 9.5 mg/dL (8.5-10.1); Carbon Dioxide 21.8 mmol/L (21.0-32.0); Chloride 110 mmol/L (98-107); Estimated GFR (African America 41 (>=60); Estimated GFR (Non-African Ame 33 (>=60); Globulin 3.7 g/dL; Glucose 357 mg/dL (74-106); Potassium 4.3 mmol/L (3.5-5.1); Sodium 145 mmol/L (136-145); Total Protein 6.8 g/dL (6.4-8.2)
[2024-02-04 20:54] LABS: Troponin I High Sensitivity 5254.2 pg/mL (4.0-76.1)
[2024-02-05] VITALS: BP 140/84; PULSE 130; O2SAT 98
[2024-02-05 00:15] VITALS: PULSE 96; O2SAT 95
[2024-02-05 00:40] VITALS: BP 138/84; PULSE 100; TEMP 36.4; O2SAT 96
== END 2024-02-05 00:40 | disposition short-term general hospital (02) ==
PROVIDERS: Emergency Medicine; Emergency Provider Emergency Medicine
DX: I48.91 Unspecified atrial fibrillation (principal); N17.9 Acute kidney failure, unspecified; E11.65 Type 2 diabetes mellitus with hyperglycemia; R33.9 Retention of urine, unspecified; K92.1 Melena; R41.82 Altered mental status, unspecified; D64.9 Anemia, unspecified; R79.89 Other specified abnormal findings of blood chemistry
CPT/HCPCS: 36415; 36430; 36600; 51702; 70450; 71045; 72125; 80053; 80307; 80320; 81001; 82140; 82550; 82805; 83605; 83735; 84484; 85025; 86850; 86900; 86901; 87040; 93005; 96361; 96365; 96375; 96376; 99285; G0328; P9016